=== PATIENT | male | born 1990 | race Caucasian/White ===

== ENCOUNTER 2016-12-11 13:58 | Emergency (ER) | payer OTHER, BC ==
[2016-12-11 14:07] LABS: BASOPHIL COUNT 0.1 K/uL (0-0.1); EOSINOPHIL (%) 0.3 % (0-5); IMMATURE GRANULOCYTE (%) 2.4 % (0.0-0.7); IMMATURE GRANULOCYTE COUNT 0.2 K/uL; INSTRUMENT ABS NEUTROPHIL CT 7.7 K/uL; MCH 31.5 PG (29.0-34.0); MCHC 35.2 G/DL (30.0-36.0); MCV 89.3 FL (86-99); MEAN PLAT.VOLUME 9.2 uM^3 (9.0-12.4); MONOCYTE (%) 5.4 % (3-12); MONOCYTE COUNT 0.5 K/uL (0-0.8); NEUTROPHIL (%) 80.8 % (45-76); NEUTROPHIL COUNT 7.7 K/uL (1.8-6.4); PLATELET COUNT 257 K/uL (156-360); RBC DIS.WIDTH-CV 12.2 % (11.8-14.6); RBC DIS.WIDTH-SD 40.2 % (39-53); RED BLOOD COUNT 5.15 M/uL (4.00-5.50); WHITE BLOOD COUNT 9.5 K/uL (4.1-10.2)
[2016-12-11 14:18] LABS: AMYLASE 59 IU/L (1-118); CHLORIDE 104 mEq/L (99-109); POTASSIUM 3.9 mEq/L (3.7-5.4); SODIUM 139 mEq/L (136-147)
[2016-12-11 14:20] LABS: GLUCOSE 108 mg/dL (70-99)
[2016-12-11 14:21] LABS: ANION GAP 12 MEQ/L (2-14)
[2016-12-11 14:23] LABS: SERUM ETHYL ALCOHOL < 10 mg/dL
[2016-12-11 14:24] LABS: UREA NITROGEN (BUN) 11 mg/dL (9-23)
[2016-12-11 14:25] LABS: GFR ESTIMATE (CALCULATED) > 59 mL/min/
[2016-12-11 14:26] LABS: LIPASE 28 U/L (1.0-51.0)
[2016-12-11 15:16] LABS: TROP-I INTERPRETATION NEGATIVE; TROPONIN-I < 0.01 ng/mL (0.0-0.30)
[2016-12-11] MEDS ORDERED: MOTRIN600 MG PO (15:46)
[2016-12-11] MEDS ORDERED: ROBAXIN750 MG PO (15:46)
== END 2016-12-11 15:48 | disposition home or self-care (01) ==
LOC: TRA 13:58
PROVIDERS: Emergency Medicine
DX: S20.219A Contusion of unspecified front wall of thorax, initial encounter (principal); S16.1XXA Strain of muscle, fascia and tendon at neck level, initial encounter; V47.0XXA Car driver injured in collision with fixed or stationary object in nontraffic accident, initial encounter; W22.10XA Striking against or struck by unspecified automobile airbag, initial encounter
CPT/HCPCS: 71020; 80048; 81003; 82150; 83690; 84484; 85025; 86850; 86900; 86901; 93005; 99281; 99285; G0480